=== PATIENT | female | born 1945 | race African-American/Black ===

== ENCOUNTER → 2018-11-12 | Outpatient (CLI) | payer MEDICARE, MEDICAID | END | disposition home or self-care (01) | LOC: CCL 07:55 | PROVIDERS: ATTEND Psychiatry & Neurology Neurology | DX: F41.0 Panic disorder [episodic paroxysmal anxiety] (principal); G40.909 Epilepsy, unspecified, not intractable, without status epilepticus ==

== ENCOUNTER → 2024-10-30 | Outpatient (CLI) | payer MEDICARE, MEDICAID | END | disposition home or self-care (01) | LOC: MRI 10:04 | PROVIDERS: ATTEND Neurological Surgery | DX: M47.817 Spondylosis without myelopathy or radiculopathy, lumbosacral region (principal); M47.814 Spondylosis without myelopathy or radiculopathy, thoracic region; M51.370 Other intervertebral disc degeneration, lumbosacral region with discogenic back pain only; M51.34 Other intervertebral disc degeneration, thoracic region; M48.07 Spinal stenosis, lumbosacral region; M48.03 Spinal stenosis, cervicothoracic region; M43.16 Spondylolisthesis, lumbar region; M50.223 Other cervical disc displacement at C6-C7 level; R29.890 Loss of height | CPT/HCPCS: 72141; 72148 ==